=== PATIENT | female | born 1985 | race Caucasian/White ===

== ENCOUNTER 2024-03-19 12:02 | Emergency (ER) | payer OTHER ==
[~2024-03-19] VITALS: Ht 165.1 cm; Wt 61.9 kg
[2024-03-19] MEDS ORDERED: CHLORDIAZEPOXID25 MG PO (13:25)
[2024-03-19] MEDS ORDERED: ONDANSETRON ODT8 MG PO (13:25)
[2024-03-19 13:38] VITALS: BP 153/93
== END 2024-03-19 13:39 | disposition home or self-care (01) ==
LOC: ED 12:02
DX: F10.10 Alcohol abuse, uncomplicated (principal); I10 Essential (primary) hypertension
CPT/HCPCS: 99283

== ENCOUNTER 2025-04-12 08:40 | Day surgery (SDC) | payer OTHER ==
[~2025-04-12] VITALS: Ht 157.5 cm; Wt 68.1 kg
[~2025-04-12 08:40] MED LIST: CEFAZOLIN SODIUM 2 GM/20 ML SYR IV SCH; CHLORDIAZEPOXID25 MG PO; IBLOOD GLUCOSE TEST STRIP 1 EA TEST VI PRN; LACTATED RINGER'S 1,000 ML IV SCH; LIDOCAINE HCL 1% 5 ML SDV INJ ONE; ONDANSETRON ODT8 MG PO; TRANEXAMIC ACID IN NACL,ISO-OS 1,000 MG/100 ML PIGGYBACK IV SCH
[2025-04-12 08:58] VITALS: BP 136/78
--- NOTE | 2025-04-12 09:19 | NUR ---
[facility] AT IS WAITING.
[2025-04-12] MEDS ORDERED: Ropivacaine HCl 0.5% 30 ML VIAL ONE (10:05)
[2025-04-12] MEDS ORDERED: DEXAMETHASONE SOD PHOS 4 MG/ML VIAL ONE ×2 (10:05→10:45)
[2025-04-12] MEDS ORDERED: dexmedeTOMIDine HCl 200 MCG/2 ML VIAL ONE (10:05)
[2025-04-12] MEDS ORDERED: LIDOCAINE HCL 2% 5 ML SDV ONE (10:06)
[2025-04-12] MEDS ORDERED: MIDAZOLAM HCL 2 MG/2 ML VIAL ONE (10:07)
[2025-04-12] MEDS ORDERED: fentaNYL citrate 100 MCG/2 ML VIAL ONE (10:45)
--- NOTE | 2025-04-12 11:02 | NUR ---
FRANCO DAVIS HAS BEEN IN AND DID L SHOULDER BLOCK SEE ANESTHESIA RECORD. TOLERATED IT WELL.
[2025-04-12] MEDS ORDERED: ePHEDrine sulfate 50 MG/ML AMP ONE (11:28)
[2025-04-12] MEDS ORDERED: HYDROCODONE/ACETA 7.5/325 TAB PO PRN (12:00)
[2025-04-12] MEDS ORDERED: KETOROLAC TROMETHAMINE 15 MG/ML VIAL IV PRN (12:00)
[2025-04-12] MEDS ORDERED: DICLOFENAC SODI75 MG PO (12:05)
[2025-04-12] MEDS ORDERED: HYDROCODON-ACE1 EA11 PO (12:05)
--- NOTE | 2025-04-12 12:13 | NUR ---
04/12/25 Peter3 Darling Jones PATIENT REQUIRES JAW [facility]RUST FOR ADEQUATE GAS EXCHANGE ON ARRIVAL TO PACU. PATIENT IS UNRESPONSIVE TO THIS.
[2025-04-12] MEDS ORDERED: NALOXONE HCL 0.4 MG SYR IV PRN (12:45)
[2025-04-12] MEDS ORDERED: droPERidol 5 MG/2 ML VIAL IV PRN (12:45)
[2025-04-12] MEDS ORDERED: fentaNYL citrate 50 MCG/ML SDV IV PRN (12:45)
[2025-04-12] MEDS ORDERED: KETOROLAC TROMETHAMINE 30 MG/ML VIAL IV ONE (12:45)
[2025-04-12 12:47] VITALS: BP 139/70
--- NOTE | 2025-04-12 12:51 | NUR ---
SITTING UP EATING JELLO CRACKERS DRINKING WATER. MOM AT BEDSIDE AND VISITING.
[2025-04-12 13:42] VITALS: BP 139/71
--- NOTE | 2025-04-12 14:03 | NUR ---
HAS AMB TO [facility]. WANTS TO GO HOME. DC INSTRUCTIONS EXPLAINED TO PT AND HER MOM. REVIEWED CRYOCUFF PAPER FROM DR POSADA OFFICE AND EDUCATION SHEETS NO QUESTIONS. ENC TO [facility]ERE[facility] AT HOME. APPT AND AFTER HRS NUMBER GIVEN TO PT.
[2025-04-12] MEDS ORDERED: SEVOFLURANE 250 ML BTL INH ONE (15:45)
[2025-04-12] MEDS ORDERED: DICLOFENAC SOD 75 MG TABEC PO SCH (21:00)
--- NOTE | 2025-04-13 06:39 | OR ---
[facility] [address], [place] [address] Signed DATE OF OPERATION: 04/12/2025 SURGEON: Marina Ortiz MD PREOPERATIVE DIAGNOSIS: Partial rotator cuff tear, left shoulder. POSTOPERATIVE DIAGNOSIS: Full rotator cuff tear, left shoulder. PROCEDURE PERFORMED: Left shoulder arthroscopy with rotator cuff repair. FUNERAL COUNSELOR: None. ANESTHESIA: General. BLOOD LOSS: Minimal. IMPLANTS: One 4.75 SwiveLock. BRIEF HISTORY: Rogelio is a 39-year-old female with history of shoulder pain, has been going on for a year. Nonoperative treatment was unsuccessful in managing her pain. She wished to proceed with surgery. Risks, benefits, and alternatives were discussed with her and she understood and wished to proceed. DESCRIPTION OF PROCEDURE: Once consent was obtained, she was taken to the operating room. After adequate anesthesia, she was placed on the operating table in a beach chair position. The left shoulder was prepped and draped in a standard sterile fashion. The shoulder was injected with 15 mL 0.25% Marcaine with epinephrine as was subacromial space. Standard posterior portal was made. The scope was introduced in the shoulder. ARTHROSCOPIC FINDINGS: There was a moderate synovitis throughout the shoulder. The biceps, biceps anchor and Electronically Signed By: MARINA ORTIZ MD 04/13/25 0639 PATIENT NAME: ROGELIO COFFEY OPERATIVE REPORT DATE OF : 81 REPORT #: [id number] PHYSICIAN: MARINA ORTIZ MD PCP: ADRIANA STRICKLAND MD REPORT IS CONFIDENTIAL AND NOT TO BE RELEASED WITHOUT AUTHORIZATION [facility] [address] [facility] [place] [place] [address] Signed labrum showed some minor fraying of the labrum . The glenohumeral surfaces were intact. Undersurface of the rotator cuff showed a 1 cm full-thickness tear of the anterior supraspinatus. The subacromial space showed no evidence of bursitis. The tear was easily located well. DESCRIPTION OF OPERATION: Diagnostic arthroscopy was undertaken as noted above. The scope was withdrawn, placed in subacromial space and the rotator cuff tear was debrided using the shaver and the Mitek VAPR. The tear was found to be well about 1 cm tear. The FiberTape suture was placed in an inverted mattress configuration and placed through the 4.75 SwiveLock. This was impacted and the tuberosity drawing the tear down to a nice stable position. Prior to this, we did debride the bone and created a bleeding bony bed. The water was turned off and there was excellent bleeding and fat from the anchor itself. The suture ends were cut and the scope was withdrawn. Portals were closed with 3-0 nylon and the wounds were dressed with Allevyn and OpSite. She tolerated the procedure well. All sponge, needle, and instrument counts were correct. Marina Ortiz MD BA/ROBERTO CARLOSL /[id number] Copies: ~ Electronically Signed By: MARINA ORTIZ MD 04/13/2539 PATIENT NAME: ELIZABETH COFFEYENDOLYCheryl ESCOTO OPERATIVE REPORT DATE OF : 81 REPORT #: [id number] PHYSICIAN: MARINA ORTIZ MD PCP: ADRIANA STRICKLAND MD REPORT IS CONFIDENTIAL AND NOT TO BE RELEASED WITHOUT AUTHORIZATION
== END 2025-04-12 14:05 | disposition home or self-care (01) ==
LOC: DS 08:40
PROVIDERS: ATTEND Specialist
PROC: 0LM24ZZ Reattachment of Left Shoulder Tendon, Percutaneous Endoscopic Approach (ICD-10-PCS; principal; 2025-04-12 11:30)
DX: M75.122 Complete rotator cuff tear or rupture of left shoulder, not specified as traumatic (principal); M65.912 Unspecified synovitis and tenosynovitis, left shoulder; G89.18 Other acute postprocedural pain; M75.42 Impingement syndrome of left shoulder; Z79.899 Other long term (current) drug therapy
CPT/HCPCS: 01630; 64415; 84703; C1713; J0690; J1100; J2003; J2250; J2795; J3010; J7121

== ENCOUNTER 2025-06-17 19:14 | Emergency (ER) | payer OTHER ==
[~2025-06-17] VITALS: Ht 157.5 cm; Wt 65.8 kg
[~2025-06-17 19:14] MED LIST changes: -CEFAZOLIN SODIUM 2 GM/20 ML SYR IV SCH; +DICLOFENAC SODI75 MG PO; +HYDROCODON-ACE1 EA11 PO; -IBLOOD GLUCOSE TEST STRIP 1 EA TEST VI PRN; -LACTATED RINGER'S 1,000 ML IV SCH; -LIDOCAINE HCL 1% 5 ML SDV INJ ONE; -TRANEXAMIC ACID IN NACL,ISO-OS 1,000 MG/100 ML PIGGYBACK IV SCH
[2025-06-17 20:50] VITALS: BP 129/89
== END 2025-06-17 20:52 | disposition home or self-care (01) ==
LOC: ED 19:14
DX: F07.81 Postconcussional syndrome (principal); I10 Essential (primary) hypertension
CPT/HCPCS: 70450; 99284-25